=== PATIENT | female | born 1960 | race Caucasian/White ===

== ENCOUNTER 2018-09-14 15:01 | Outpatient (REF) | payer MEDICARE, MEDICAID, SELFPAY ==
[2018-09-14 22:01] LABS: ALT 26 U/L (12-78); AST 21 U/L (15-37); Albumin 4.2 g/dL (3.4-5.0); Alkaline Phosphatase 89 U/L (46-116); Anion Gap 8.2 mmol/L (3-11); BUN 14 mg/dL (7-18); Bilirubin, Total 0.4 mg/dL (0.2-1.0); CO2 29.8 mmol/L (21.0-32.0); CREATININE 0.67 mg/dL (0.55-1.02); Calcium 9.7 mg/dL (8.5-10.1); Chloride 101 mmol/L (98-107); Cholesterol 226 mg/dL (50-200); Glucose 85 mg/dL (70-100); HDL Cholesterol 64 mg/dL (40-60); LDL CHOLESTEROL 149 mg/dL (<100); Potassium 4.1 mmol/L (3.5-5.1); Sodium 139 mmol/L (136-145); Total Protein 7.7 g/dL (6.4-8.2); Triglyceride 81 mg/dL (30-150)
== END 2018-09-14 15:21 ==
LOC: NCHCN 15:01
PROVIDERS: PCP Family Medicine; Visit Provider Family Medicine
DX: F32.9 Major depressive disorder, single episode, unspecified (principal); E78.89 Other lipoprotein metabolism disorders
CPT/HCPCS: 80053; 80061; 83721

== ENCOUNTER 2019-09-07 11:16 | Outpatient (REF) | payer MEDICARE, MEDICAID, SELFPAY ==
--- NOTE | 2019-09-07 10:00 | PAPFT_PTH ---
PATIENT: Monique Bowen LOC: [facility] U#:[id number] AGE/SX: 59/F ROOM: RE09/07/[address]: Мария Vazquez : 1960 BED: DIS: 09/07/2019 SPEC #: [id number] RECD: 09/08/19 12:49 STATUS: STEPHANIE REQ #: [id number] JYOTI: 09/07/19 10:[address]: Мария Vazquez DEPT: [facility] Cytology RECD BY: Rita Eid ENTERED: 09/08/19 12:49 SP TYPE: PAPFT OTHR DR: Akash Orona Tissues: 1 - CX/ENDOCX FOR PAP SMEARS Procedures: PAP THIN PREP/[facility] Screening HPV DNA PROBE Comments: [id number]
== END 2019-09-07 11:36 ==
LOC: NCHCN 11:16
PROVIDERS: PCP Family Medicine; Visit Provider Registered Nurse
DX: Z12.4 Encounter for screening for malignant neoplasm of cervix (principal); Z11.51 Encounter for screening for human papillomavirus (HPV)
CPT/HCPCS: 88142; 87624

== ENCOUNTER 2020-12-18 15:47 | Outpatient (REF) | payer OTHER, MEDICAID, SELFPAY ==
[2020-12-18 14:00] LABS: Calculated LDL 177 mg/dL (<100); Cholesterol 259 mg/dL (<200); HDL Cholesterol 71 mg/dL (40-60); Triglyceride 59 mg/dL (<150)
== END 2020-12-18 15:48 | disposition home or self-care (01) ==
LOC: NCHCN 15:47
PROVIDERS: PCP Family Medicine; Visit Provider Registered Nurse
DX: E78.5 Hyperlipidemia, unspecified
CPT/HCPCS: 80061

== ENCOUNTER 2020-12-23 18:27 | Outpatient (REF) | payer OTHER, MEDICAID, SELFPAY ==
[2020-12-23 22:23] LABS: ALT 22 U/L (14-59); AST 18 U/L (15-37); Alkaline Phosphatase 81 U/L (46-116); BUN 15 mg/dL (7-18); Bilirubin, Total 0.3 mg/dL (0.2-1.0); CREATININE 0.7 mg/dL (0.55-1.02); Calcium 9.3 mg/dL (8.5-10.1); Chloride 103 mmol/L (98-107); Creatine Kinase 84 U/L (26-192); Glucose 65 mg/dL (74-106); Potassium 3.9 mmol/L (3.5-5.1); Sodium 142 mmol/L (136-145); TSH (W/Ref FT4) 3.79 uIU/mL (0.36-3.74); Total Protein 7.6 g/dL (6.4-8.2)
[2020-12-23 22:44] LABS: FREE T4 0.83 ng/dL (0.76-1.46)
== END 2020-12-23 18:28 | disposition home or self-care (01) ==
LOC: NCHCN 18:27
PROVIDERS: PCP Family Medicine; Visit Provider Nurse Practitioner Community Health
DX: M79.605 Pain in left leg (principal); M79.89 Other specified soft tissue disorders; M79.18 Myalgia, other site; R94.6 Abnormal results of thyroid function studies
CPT/HCPCS: 80053; 82550; 85652; 84439; 84443

== ENCOUNTER 2023-09-06 18:14 | Outpatient (REF) | payer OTHER, MEDICAID, SELFPAY ==
[2023-09-06 17:25] LABS: Calculated LDL 77 mg/dL (<100); Cholesterol 169 mg/dL (<200); HDL Cholesterol 83 mg/dL (40-60); TSH 3.19 uIU/mL (0.36-3.74); Triglyceride 49 mg/dL (<150)
== END 2023-09-06 18:15 | disposition home or self-care (01) ==
LOC: NCHCN 18:14
PROVIDERS: PCP Family Medicine; Visit Provider Registered Nurse
DX: E78.5 Hyperlipidemia, unspecified (principal); R63.4 Abnormal weight loss
CPT/HCPCS: 80061; 84443